=== PATIENT | male | born 1980 | race Hispanic/Latino ===

== ENCOUNTER 2024-09-26 13:05 | Emergency (ER) | payer BC ==
[~2024-09-26] VITALS: Ht 170.2 cm; Wt 129.3 kg
--- NOTE | 2024-09-26 14:10 | EKG ---
[facility] Test Date: 2024-09-26 Test Time: 13:26:54 Pat Name: AIDA ASENCIO Department: ED Room: Gender: M Shook Splicer: [id number] : 1980 Requested By: CURTIS GAN Order Number: [id number] Reading MD: Celestino Paris Measurements Intervals [place] Rate: 77 P: 41 PA: 159 QRS: -2 QRSD: 87 T: 29 QT: 335 QTc: 378 Interpretive Statements Sinus rhythm Low voltage, precordial leads No previous ECG available for comparison Electronically Signed On 09-26-2024 16:05:40 DUE DILIGENCE COORDINATOR by Celestino Paris Please click the below link to view image of tracing.
--- NOTE | 2024-09-26 15:23 | HMCIMG ---
CHEST 1VW HISTORY: Chest pain COMPARISON: None FINDINGS: A frontal projection of the chest was obtained. No acute pulmonary infiltrates is seen. The heart is normal in size. Prominent interstitial markings are seen. No evidence of aortic calcification is seen. IMPRESSION: 1. No acute pulmonary infiltrate is seen.
[2024-09-26 15:25] LABS: BASOPHILS # (AUTO) 0.06 K/uL (0.00-0.20); BASOPHILS % (AUTO) 0.5 % (0.0-5.0); EOSINOPHILS # (AUTO) 0.12 K/uL (0.00-0.70); HEMATOCRIT 49.5 % (42-54); IMMATURE GRANULOCYTE ABSOLUTE 0.08 K/uL (0-1); LYMPHOCYTES # (AUTO) 3.9 K/uL (1.0-4.8); LYMPHOCYTES % (AUTO) 34.2 % (21.0-51.0); MEAN CORPUSCULAR HEMOGLOBIN 29.8 pg (27.0-33.0); MEAN CORPUSCULAR HGB CONC 34.5 g/dL (32.0-36.0); MEAN CORPUSCULAR VOLUME 86.2 fL (79-99); MONOCYTES % (AUTO) 8.4 % (3.0-13.0); NEUTROPHILS # (AUTO) 6.3 K/uL (1.8-7.7); NEUTROPHILS % (AUTO) 55.2 % (40.0-77.0); PLATELET COUNT (AUTO) 246 K/uL (130-400); RED BLOOD CELL COUNT(AUTO) 5.74 MIL/uL (4.50-6.20); RED CELL DISTRIBUTION WIDTH 13.7 % (11.0-15.5); WHITE BLOOD COUNT (AUTO) 11.4 K/uL (4.8-10.8)
[2024-09-26 15:35] LABS: POTASSIUM 4.1 mmol/L (3.5-5.1)
[2024-09-26 15:39] LABS: ALBUMIN 3.7 g/dL (3.5-5.0); BILIRUBIN,DIRECT 0.1 mg/dL (0.0-0.3); BILIRUBIN,TOTAL 0.5 mg/dL (0.2-1.0); TOTAL PROTEIN, SERUM 7.8 g/dL (6.0-8.3)
--- NOTE | 2024-09-26 15:57 | ERN ---
ED Note History of Present Illness Stated Complaint: SOB,CHEST PAIN Chief Complaint: Chest Pain Time Seen by MD: 14:02 Dictation: 44-year-old male presents to the ED for evaluation of chest pain onset three days ago worsening today. Patient is complaining of dizziness, shortness of breath, left hand swelling and numbness, but denies any other associated symptoms at this time. Patient states he was at work when he began experiencing sharp chest pain and felt like the room was spinning. Allergies: Coded Allergies: No Known Allergies (Unverified Allergy, Unknown, 09/26/24) Home Meds Active Scripts Clindamycin HCl (Clindamycin HCl) 300 Mg Capsule, 1 CAP PO TID for 10 Days, #30 CAP 0 Refills Prov:CURTIS GAN MD 09/26/24 Past Medical History Past Medical History: Other Additional Past Medical Hx: HERNIA Surgical History: None Review of System Dictation Constitutional: Negative for fever,chills, and weight loss Eyes: Negative for injury, pain,redness, and discharge ENT: Negative for injury,pain or swelling Cardiovascular: Positive for chest pain Respiratory: Positive for shortness of breath Abdomen/GI: Negative for abdominal pain, nausea, vomiting, diarrhea, and constipation Back: Negative for injury and pain : Negative for injury, bleeding and discharge MS/Extremity: Negative for injury and deformity Skin: Negative for rash, and discoloration Neuro: Positive for dizziness, left hand numbness Negative for headache, weakness, tingling, and seizure Psych: Negative for suicide ideation, homicidal ideation, and hallucinations Initial Vital Sign VS Vital Signs Date Time Temp Pulse Resp B/P (MAP) Pulse Ox O2 Delivery O2 Flow Rate FiO2 09/26/24 13:34 97.5 87 16 145/92 96 Room Air 0 Physical Exam Dictation General: awake, alert, NAD Head/Face: Normocephalic, atraumatic Eyes: PERRL, EOMI, vision at baseline ENT: oral cavity clear, TMs clear, no signs of infection Neck: Trachea midline, supple, no nuchal rigidity Cardiovascular: RRR, normal S1/S2, No MRGs, no JVD Respiratory: CTAB, no respiratory distress, No rales or wheezes Abdomen: Soft, non-tender, non-distended, normal bowel sounds, no guarding or rebound. Skin: Warm, dry, normal turgor, no rash : Chronic foreign body in penis shaft MS/Extremity: Pulses equal, no cyanosis, neurovascular intact, FROM Neuro: COAx4, GCS 15, strength 5/5, CN 2-12 intact, normal cerebellar exam, normal gait, Psych: Normal behavior, mood, and affect normal Results (Laboratory/Radiology) Laboratory/Radiology Laboratory Tests Test 09/26/24 15:10 White Blood Count 11.4 K/uL (4.8-10.8) H Red Blood Count 5.74 MIL/uL (4.50-6.20) Hemoglobin 17.1 g/dL (14.0-18.0) Hematocrit 49.5 % (42-54) Mean Corpuscular Volume 86.2 fL (79-99) Mean Corpuscular Hemoglobin 29.8 pg (27.0-33.0) Mean Corpuscular Hemoglobin Concent 34.5 g/dL (32.0-36.0) Red Cell Distribution Width 13.7 % (11.0-15.5) Platelet Count 246 K/uL (130-400) Mean Platelet Volume 9.1 fL (7.5-10.5) Immature Granulocyte % (Auto) 0.7 % (0-1) Neutrophils (%) (Auto) 55.2 % (40.0-77.0) Lymphocytes (%) (Auto) 34.2 % (21.0-51.0) Monocytes (%) (Auto) 8.4 % (3.0-13.0) Eosinophils (%) (Auto) 1.0 % (0.0-8.0) Basophils (%) (Auto) 0.5 % (0.0-5.0) Neutrophils # (Auto) 6.3 K/uL (1.8-7.7) Lymphocytes # (Auto) 3.9 K/uL (1.0-4.8) Monocytes # (Auto) 1.0 K/uL (0.1-1.0) Eosinophils # (Auto) 0.12 K/uL (0.00-0.70) Basophils # (Auto) 0.06 K/uL (0.00-0.20) Absolute Immature Granulocyte (auto 0.08 K/uL (0-1) Nucleated Red Blood Cells 0.0 % (0.0-0.19) Sodium Level 139 mmol/L (136-145) Potassium Level 4.1 mmol/L (3.5-5.1) Chloride Level 102 mmol/L (101-111) Carbon Dioxide Level 29 mmol/L (21-32) Blood Urea Nitrogen 11 mg/dL (7-18) Creatinine 1.0 mg/dL (0.5-1.3) Glomerular Filtration Rate Calc 95 mL/min (>90) Random Glucose 92 mg/dL (70-105) Total Calcium 8.9 mg/dL (8.5-10.1) Total Bilirubin 0.5 mg/dL (0.2-1.0) Direct Bilirubin 0.1 mg/dL (0.0-0.3) Aspartate Amino Transf (AST/SGOT) 28 U/L (10-37) Alanine Aminotransferase (ALT/SGPT) 47 U/L (12-78) Alkaline Phosphatase 58 U/L (50-136) Total Creatine Kinase 233 U/L (21-232) H Troponin I High Sensitivity 11 ng/L (4-75) B-Type Natriuretic Peptide 6 pg/mL (0-100) Total Protein 7.8 g/dL (6.0-8.3) Albumin 3.7 g/dL (3.5-5.0) Lipase 154 U/L (16-77) H Labs Reviewed?: Yes ED Course ED Course Orders Procedure Category Date Status Time 12 Lead Ekg Tracing- EKG 09/26/24 Resulted Technical 13:51 B-Type Natriuretic LAB 09/26/24 Complete Peptide 14:03 Basic Metabolic Panel LAB 09/26/24 Complete 14:03 Cbc With Differential LAB 09/26/24 Complete 14:03 Creatine Kinase, Total LAB 09/26/24 Complete 14:03 Hepatic Function Panel LAB 09/26/24 Complete 14:03 Drug Screen Urine LAB 09/26/24 Logged 14:03 Lipase LAB 09/26/24 Complete 14:03 Troponin I High LAB 09/26/24 Complete Sensitivity 14:03 Chest 1vw RAD 09/26/24 Resulted 14:03 Vital Signs Date Time Temp Pulse Resp B/P (MAP) Pulse Ox O2 Delivery O2 Flow Rate FiO2 09/26/24 13:34 97.5 87 16 145/92 96 Room Air 0 Medical Decision Making MDM MDM: Differential diagnosis: Chest pain, dizziness, penile foreign body Risk of complication and/or morbidity or mortality of patient management: None Medications-Per medication reconciliation Need for hospitalization: Patient does not meet criteria for hospitalization. Need for emergency major/minor surgery: No There are no social concerns with this patient. Prescription drug management Prescriptions will include symptomatic care I independently interpreted the test that were performed, results were reviewed by me and considered findings on radiology if ordered. Medical management and examination interpretation discussions were had by me with other qualified healthcare professionals as indicated for the patient's care. DX & DISP Disposition: Discharge Departure Impression: Primary Impression: Chest pain Additional Impression: Foreign body in penis, sequela Condition: Stable Scripts Clindamycin HCl (Clindamycin HCl) 300 Mg Capsule 1 CAP PO TID for 10 Days, #30 CAP 0 Refills Prov: CURTIS GAN MD 09/26/24 Referrals: SELF,REFERRAL (PCP) CURTIS GAN MD Sep 26, 2024 15:57
[2024-09-26] MEDS ORDERED: CLIN-141 PO (16:09)
[2024-09-26 16:11] LABS: B-TYPE NATRIURETIC PEPTIDE 6 pg/mL (0-100)
== END 2024-09-26 16:57 | disposition home or self-care (01) ==
LOC: EDH 13:05
DX: R07.89 Other chest pain (principal); T19.4 Foreign body in penis; Z79.899 Other long term (current) drug therapy; W44.8 Other foreign body entering into or through a natural orifice
CPT/HCPCS: 36415; 71045; 80048; 80076; 82550; 83690; 83880; 84484; 85025; 93005; 99284